=== PATIENT | female | born 1940 | race Caucasian/White ===

== ENCOUNTER → 2017-08-04 | Outpatient (CLI) | payer MEDICARE ==
[~2017-08-04] MED LIST: ALB18R INH; ALB6.7R INH; ALBU8.5H IH; ALL300 PO; ALLO-2 PO; ALPR-448 PO; AMLO-1 PO; AMLO-96 PO; AMOX-559 PO; AZIT-17 PO; BUDE10.2 INH; BUDE10.25 IH; CHOL10005 PO; CYAN250T15 PO; CYCL-277 PO; CYCL10TA29 PO; DABI150C3 PO; DABI75CA4 PO; DILT180T9 PO; DILT360C35 PO; DIPH-1 PO; DIPH0.5D12 IM; DOXY-179 PO; EPIN0.3P15 IM; ESCI10TA8 PO; ESCI20TA8 PO; FEXO180T74 PO; FEXO180T87 PO; FLU IM; FLU150 PO; FLU20 PO; FLU45SYR17 IM; FLUO-177 PO; FLUT16SP19 NS; FLUT16SP20 NS; HYDR-389 PO; HYOS-50 SL; LACT1CAP6 PO; LEVO100T95 PO; LEVO88TA42 PO; LOPE-95 PO; LORA-629 PO; LUTE20CA11 PO; NITR-105 PO; NOR5/325 PO; OMEP-137 PO; OMEP-153 PO; OMEP40CA48 PO; OXYB5TAB86 PO; PNEU0.5D3 IM; PRED20TA6 PO; PRI250 PO; PRIM50TA PO; PRIM50TA42 PO; RIVA20TA PO; SOTA120T25 PO; SPIR25TA78 PO; SPIR50TA31 PO; SULF-198 PO; TRAZ-133 PO; TRAZ-163 PO
== END ==
LOC: RESP 06:44
PROVIDERS: ATTEND Internal Medicine
DX: R09.02 Hypoxemia (principal); J45.909 Unspecified asthma, uncomplicated; J98.4 Other disorders of lung
CPT/HCPCS: 94060; 94726; 94729

== ENCOUNTER → 2017-09-22 | Outpatient (RCR) | payer MEDICARE | LOC: RESP 08-18 10:33 | PROVIDERS: ATTEND Internal Medicine | DX: R09.02 Hypoxemia (principal); J45.909 Unspecified asthma, uncomplicated | CPT/HCPCS: 94618; G0239 ==

== ENCOUNTER 2017-10-31 10:24 | Emergency (ER) | payer MEDICARE ==
[~2017-10-31 10:24] MED LIST changes: -FENT1PAT40 TD; -FLUO-201 PO; -MORP100S32 PO
--- NOTE | 2017-10-31 10:40 | ER Report ---
History and Physical Time Seen By MD: 10:39 HPI/ROS CHIEF COMPLAINT: Severe abdominal pain HISTORY OF PRESENT ILLNESS: Patient is a 77-year-old female who presents to the emergency department by ambulance for evaluation of severe generalized abdominal pain. Patient states symptoms began on Tuesday but it progressively worsened. She was recently seen by Dr. Elaine on October 21 for evaluation of a vulvar infection she been previously put on antibiotics 2 days earlier by her primary care provider she started on clindamycin apparently developed epigastric abdominal discomfort and some diarrhea so she was switched to oral doxycycline which she is currently taking. Since that time she's had worsening abdominal cramping large amount of diarrhea that is described as mucousy but without blood. She is now having bloating and distention. Patient has no prior history of any abdominal surgeries but did have back surgery in the past. She denies fevers or chills. But does report feeling cold. She reports nausea without vomiting. She denies chest pain or shortness of breath. REVIEW OF SYSTEMS: Constitutional: No fever, no chills. Eyes: No discharge. ENT: No sore throat. Cardiovascular: No chest pain, no palpitations. Respiratory: No cough, no shortness of breath. Gastrointestinal: Crampy abdominal pain, nausea and watery mucousy diarrhea Genitourinary: No hematuria. Musculoskeletal: No back pain. Skin: No rashes. Neurological: No headache. Allergies: Coded Allergies: iodine (Verified Allergy, Severe, hives, 10/31/17) "about 20 years ago had an ivp and developed hives" NIKOLE Inhibitors (Unverified Allergy, Unknown, 10/31/17) codeine (Verified Allergy, Unknown, 10/31/17) hydrochlorothiazide (Unverified Allergy, Unknown, 10/31/17) morphine (Verified Allergy, Unknown, 10/31/17) Home Meds Active Scripts Doxycycline Hyclate (DOXYCYCLINE HYCLATE) 100 Mg Tablet, 100 MG PO QDAY, #7 TAB Prov:CANDACE BARRETT MD 10/25/17 Sotalol Hcl (SOTALOL) 120 Mg Tablet, 1 TAB PO BID, #180 TAB 4 Refills Prov:CANDACE BARRETT MD 10/19/17 Fluoxetine Hcl (FLUOXETINE HCL) 20 Mg Tablet, 20 MG PO QDAY, #30 TAB 6 Refills Prov:CANDACE BARRETT MD 10/19/17 Levothyroxine Sodium (SYNTHROID) 100 Mcg Tablet, 1 TAB PO QDAY, #90 TAB 4 Refills Prov:CANDACE BARRETT MD 10/05/17 Fluticasone Prop 50 Mcg Ns (FLONASE 50 MCG NS) 16 Gm [place].susp, 2 SPRAYS NS QDAY, #1 BOT 11 Refills Prov:CANDACE BARRETT MD 10/05/17 Primidone (PRIMIDONE) 250 Mg Tab, 1 TAB PO QHS, #90 TAB 3 Refills Prov:CANDACE BARRETT MD 10/05/17 Acetaminophen/Hydrocodone (HYDROCODON-ACETAMINOPH 7.5-325) 1 Each Ea, 1 EACH PO QID Y for BACK PAIN for 30 Days, #100 TAB refill on or after Prov:CANDACE BARRETT MD 09/22/17 Allopurinol (ZYLOPRIM 300 MG TAB (OR EQUIV)) 300 Mg Tab, 0.5 TAB PO QDAY, #45 TAB 4 Refills Prov:CANDACE BARRETT MD 08/25/17 Rivaroxaban 20 Mg (XARELTO 20 MG) 20 Mg Tablet, 1 TAB PO DAILY, #90 TAB 3 Refills Prov:CANDACE BARRETT MD 08/25/17 Amlodipine Besylate (AMLODIPINE BESYLATE) 5 Mg Tablet, 1 TAB PO QDAY, #90 TAB 3 Refills TAKE ONE TABLET BY MOUTH EVERY DAY Prov:CANDACE BARRETT MD 06/29/17 Diphenoxylate Hcl/Atropine (LOMOTIL TABLET) 1 Each Tablet, 1 EACH PO QID Y for diarhea, #40 TAB 3 Refills Prov:CANDACE BARRETT MD 04/29/17 Trazodone Hcl (TRAZODONE HCL) 100 Mg Tablet, 0.5-1 TAB PO QHS Y for sleep, #90 TAB 1 Refill Prov:CANDACE BARRETT MD 03/25/17 Albuterol Sulfate (VENTOLIN HFA) 18 Gm Inh, 2 PUFF INH QID Y for SHORTNESS OF BREATH, #1 INH 4 Refills Prov:CANDACE BARRETT MD 12/27/16 Spironolactone (SPIRONOLACTONE) 25 Mg Tablet, 1 TAB PO QDAY, #90 TAB 4 Refills Prov:CANDACE BARRETT MD 08/19/16 Omeprazole (OMEPRAZOLE) 40 Mg Capsule.dr, 40 MG PO QDAY, #90 CAP 3 Refills Prov:CANDACE BARRETT MD 06/24/16 Loratadine (LORATADINE) 10 Mg Tablet, 1 TAB PO DAILY Y for allergies, #30 TAB Prov:CANDACE BARRETT MD 03/05/16 Epinephrine (EPIPEN 2-ANTOINETTE) 0.3 Mg/0.3 Ml Pen.injctr, 0.3 MG IM ONCE Y for bee sting, #1 VIAL 1 Refill Prov:WINNIE VIVEROS MD 01/24/15 Reported Medications Cyanocobalamin (Vitamin B-12) (VITAMIN B-12) Unknown Strength Tablet, PO 04/07/15 Lactobacillus Combination No.4 (PROBIOTIC) 1 Each Capsule, 1 CAP PO QDAY, CAPSULE 04/07/15 Lutein (LUTEIN) 20 Mg Capsule, 1 CAP PO QDAY, CAPSULE 04/07/15 Cholecalciferol (Vitamin D3) (VITAMIN D3) 1,000 Unit Tablet, 1000 UNIT PO DAILY 05/06/14 Discontinued Scripts Clindamycin Hcl (CLINDAMYCIN HCL) 300 Mg Capsule, 300 MG PO Q8H, #30 CAPSULE Prov:CANDACE BARRETT MD 10/19/17 Past Medical/Surgical History Past medical history significant for atrial fibrillation, hypertension, asthma, irritable bowel syndrome, peptic ulcer disease, chronic back pain history of depression, history of hypothyroidism, past surgical history for cataract extraction 2009, hysterectomy in 1986, history of bilateral total knee replacement 2007. Hx Smoking: No Smoking Status: Never Smoker Hx Substance Use Disorder: No Hx Alcohol Use: Yes Constitutional Vital Sign - Last 24 Hours 10/31/17 10/31/17 10/31/17 10/31/17 10:33 10:42 10:54 11:00 Temp 97.9 Pulse 62 62 Resp 22 36 B/P (MAP) 180/82 180/82 (114) 169/89 (115) Pulse Ox 97 95 O2 Delivery Room Air 10/31/17 10/31/17 10/31/17 10/31/17 11:05 11:30 11:35 11:40 Pulse 72 75 77 Resp 26 14 25 B/P (MAP) 209/98 (135) Pulse Ox 96 95 95 10/31/17 10/31/17 10/31/17 10/31/17 11:45 12:30 12:45 13:00 Pulse 81 86 Resp 16 37 B/P (MAP) 209/103 (138) 205/111 (142) Pulse Ox 94 96 10/31/17 10/31/17 10/31/17 10/31/17 13:05 13:35 14:00 14:05 Pulse ??? 82 81 Resp 10 15 29 B/P (MAP) 125/117 (120) Pulse Ox 93 93 Intake and Output 10/31/17 10/31/17 11/01/17 15:00 23:00 07:00 Intake Total 1200 ml Balance 1200 ml Physical Exam General/Constitutional: Patient is awake, alert, and ill appearing patient appears pale and shivering Head: Normocephalic and atraumatic. Eyes: Conjunctival clear, Pupils are equal and reactive to light. Extraocular muscles are intact and symmetrical. Sclera are clear and anicteric. Ears:External canals are clear. Tympanic membranes are clear with normal landmarks and light reflex. Oropharyngeal: Mucous membranes are dry Neck: Supple, no adenopathy. Cardiovascular: Heart is regular rate and rhythm without audible murmurs, rubs or gallops. Pulmonary: Lungs are clear to auscultation bilaterally. There are no wheezes, rales, or rhonchi. Chest rise is symmetrical Abdomen: Distended abdomen, diffusely tender minimal bowel sounds Extremities: No gross deformities, No peripheral cyanosis. Able to move all 4 extremities. Neuro: Alert and oriented X3, Skin: No rashes, skin is cool and pale in appearance Medical Decision Making Data Points Result Diagram: 10/31/17 1025 10/31/17 1025 Laboratory Hematology Test 10/31/17 10:25 10/31/17 11:40 10/31/17 13:35 Red Blood Count 4.38 M/uL (4.17-5.56) Mean Corpuscular Volume 96.5 fL (80.0-96.0) Mean Corpuscular Hemoglobin 33.5 pg (26.0-33.0) Mean Corpuscular Hemoglobin Concent 34.7 g/dL (32.0-36.0) Red Cell Distribution Width 13.0 % (11.5-14.5) Mean Platelet Volume 7.4 fL (7.2-11.1) Neutrophils (%) (Auto) 73.4 % (39.4-72.5) Lymphocytes (%) (Auto) 14.6 % (17.6-49.6) Monocytes (%) (Auto) 10.4 % (4.1-12.4) Eosinophils (%) (Auto) 0.6 % (0.4-6.7) Basophils (%) (Auto) 1.0 % (0.3-1.4) Nucleated RBC Relative Count (auto) 0.0 /100WBC Neutrophils # (Auto) 5.3 K/uL (2.0-7.4) Lymphocytes # (Auto) 1.1 K/uL (1.3-3.6) Monocytes # (Auto) 0.8 K/uL (0.3-1.0) Eosinophils # (Auto) 0.0 K/uL (0.0-0.5) Basophils # (Auto) 0.1 K/uL (0.0-0.1) Nucleated RBC Absolute Count (auto) 0.00 K/uL Peripheral Blood Smear Yes Y/N Sodium Level 127 mmol/L (137-145) Potassium Level 4.3 mmol/L (3.5-5.0) Chloride Level 91 mmol/L (98-107) Carbon Dioxide Level 26 mmol/L (22-31) Blood Urea Nitrogen 11 mg/dl (7-18) Creatinine 0.60 mg/dl (0.52-1.04) Glomerular Filtration Rate Calc > 60.0 Random Glucose 145 mg/dl (75-110) Calcium Level 9.9 mg/dl (8.4-10.2) Total Bilirubin 0.5 mg/dl (0.2-1.3) Aspartate Amino Transf (AST/SGOT) 21 U/L (0-35) Alanine Aminotransferase (ALT/SGPT) 24 U/L (0-56) Alkaline Phosphatase 135 U/L (0-126) Total Protein 7.5 gm/dl (6.3-8.2) Albumin 3.7 g/dl (3.5-5.0) Lipase 53 U/L (23-300) Helicobacter pylori IgG Antibody Negative (NEGATIVE) Lactate 2.9 mmol/L (0.7-2.1) Urine Color Yellow Urine Clarity Clear Urine pH 5.0 pH (4.8-9.5) Urine Specific [place] 1.056 Urine Protein Negative mg/dL (NEGATIVE) Urine Glucose (UA) Negative mg/dL (NEGATIVE) Urine Ketones Negative mg/dL (NEGATIVE) Urine Blood Small (NEGATIVE) Urine Nitrite Negative (NEGATIVE) Urine Bilirubin Negative (NEGATIVE) Urine Urobilinogen Negative mg/dL (0.2-1.9) Urine Leukocyte Esterase Moderate (NEGATIVE) Urine RBC 1 /HPF (0-2/HPF) Urine WBC 1 /HPF (0-5/HPF) Urine Squamous Epithelial Cells Many /LPF (</=FEW) Urine Transitional Epithelial Cells Few /LPF (NONE-FEW) Urine Bacteria Negative /HPF (NONE-FEW) Urine Mucus None /HPF (NONE-FEW) Chemistry Test 10/31/17 10:25 10/31/17 11:40 10/31/17 13:35 White Blood Count 7.2 k/uL (4.5-11.0) Red Blood Count 4.38 M/uL (4.17-5.56) Hemoglobin 14.7 g/dL (12.0-16.0) Hematocrit 42.3 % (34.0-47.0) Mean Corpuscular Volume 96.5 fL (80.0-96.0) Mean Corpuscular Hemoglobin 33.5 pg (26.0-33.0) Mean Corpuscular Hemoglobin Concent 34.7 g/dL (32.0-36.0) Red Cell Distribution Width 13.0 % (11.5-14.5) Platelet Count 613 K/uL (150-450) Mean Platelet Volume 7.4 fL (7.2-11.1) Neutrophils (%) (Auto) 73.4 % (39.4-72.5) Lymphocytes (%) (Auto) 14.6 % (17.6-49.6) Monocytes (%) (Auto) 10.4 % (4.1-12.4) Eosinophils (%) (Auto) 0.6 % (0.4-6.7) Basophils (%) (Auto) 1.0 % (0.3-1.4) Nucleated RBC Relative Count (auto) 0.0 /100WBC Neutrophils # (Auto) 5.3 K/uL (2.0-7.4) Lymphocytes # (Auto) 1.1 K/uL (1.3-3.6) Monocytes # (Auto) 0.8 K/uL (0.3-1.0) Eosinophils # (Auto) 0.0 K/uL (0.0-0.5) Basophils # (Auto) 0.1 K/uL (0.0-0.1) Nucleated RBC Absolute Count (auto) 0.00 K/uL Peripheral Blood Smear Yes Y/N Glomerular Filtration Rate Calc > 60.0 Calcium Level 9.9 mg/dl (8.4-10.2) Total Bilirubin 0.5 mg/dl (0.2-1.3) Aspartate Amino Transf (AST/SGOT) 21 U/L (0-35) Alanine Aminotransferase (ALT/SGPT) 24 U/L (0-56) Alkaline Phosphatase 135 U/L (0-126) Total Protein 7.5 gm/dl (6.3-8.2) Albumin 3.7 g/dl (3.5-5.0) Lipase 53 U/L (23-300) Helicobacter pylori IgG Antibody Negative (NEGATIVE) Lactate 2.9 mmol/L (0.7-2.1) Urine Color Yellow Urine Clarity Clear Urine pH 5.0 pH (4.8-9.5) Urine Specific [place] 1.056 Urine Protein Negative mg/dL (NEGATIVE) Urine Glucose (UA) Negative mg/dL (NEGATIVE) Urine Ketones Negative mg/dL (NEGATIVE) Urine Blood Small (NEGATIVE) Urine Nitrite Negative (NEGATIVE) Urine Bilirubin Negative (NEGATIVE) Urine Urobilinogen Negative mg/dL (0.2-1.9) Urine Leukocyte Esterase Moderate (NEGATIVE) Urine RBC 1 /HPF (0-2/HPF) Urine WBC 1 /HPF (0-5/HPF) Urine Squamous Epithelial Cells Many /LPF (</=FEW) Urine Transitional Epithelial Cells Few /LPF (NONE-FEW) Urine Bacteria Negative /HPF (NONE-FEW) Urine Mucus None /HPF (NONE-FEW) Urinalysis Test 10/31/17 13:35 Urine Color Yellow Urine Clarity Clear Urine pH 5.0 pH (4.8-9.5) Urine Specific [place] 1.056 Urine Protein Negative mg/dL (NEGATIVE) Urine Glucose (UA) Negative mg/dL (NEGATIVE) Urine Ketones Negative mg/dL (NEGATIVE) Urine Blood Small (NEGATIVE) Urine Nitrite Negative (NEGATIVE) Urine Bilirubin Negative (NEGATIVE) Urine Urobilinogen Negative mg/dL (0.2-1.9) Urine Leukocyte Esterase Moderate (NEGATIVE) Urine RBC 1 /HPF (0-2/HPF) Urine WBC 1 /HPF (0-5/HPF) Urine Squamous Epithelial Cells Many /LPF (</=FEW) Urine Transitional Epithelial Cells Few /LPF (NONE-FEW) Urine Bacteria Negative /HPF (NONE-FEW) Urine Mucus None /HPF (NONE-FEW) EKG/Imaging EKG Interpretation EKG shows right bundle branch block. Ventricular rate is 63 bpm.. Monitor Interpretation: Normal Sinus Rhythm ED Course/Re-evaluation Clinical Indication for ER IV: Hydration, IV Access ED Course 10/31/2017 10:44:32 pm patient has a history of IV contrast allergy for CT scan. I feel that the benefit of the CT scan outweighs any risk of allergy. Patient had no respiratory symptoms with the allergy but just diffuse hives. Plan at this time will be to give prophylactic dose of Benadryl and Solu-Medrol. CT scan of the abdomen pelvis is concerning for a colonic perforation with widespread carcinomatosis and metastatic disease throughout the chest abdomen and pelvis. I did discuss case with our on-call surgeon ; feels that the patient would be better served where there are services for surgical oncology. I spoke with from [facility] history physical exam all pertinent lab data and imaging studies reviewed. He is accepted patient for transfer to his facility and patient to be transported to the ER for reevaluation. I discussed the findings of the CT scan with the patient and her . They are aware and agree to the transport at this time. Decision to Disposition Date: Oct 31, 2017 Decision to Disposition Time: 13:25 Depart Departure Latest Vital Signs Vital Signs Date Time Temp Pulse Resp B/P (MAP) Pulse Ox O2 Delivery O2 Flow Rate FiO2 10/31/17 14:05 81 29 10/31/17 14:00 125/117 (120) 10/31/17 13:35 93 10/31/17 10:33 97.9 Room Air Impression: Primary Impression: Colon perforation Additional Impression: Metastatic disease Condition: Condition Unchanged Disposition: XFER TO [facility] (to Dr Aldana) Referrals: CANDACE BARRETT MD (PCP) Problem Qualifiers BERNICE TOVAR MD Oct 31, 2017 10:40
[2017-10-31] MEDS ORDERED: EMS NS 0.9%(*) 1000 ML BAG 1,000 ML IV ONE (10:50)
[2017-10-31] MEDS ORDERED: NS(*) 0.9% 1000 ML BAG 1,000 ML IV ONE (10:53)
[2017-10-31] MEDS ORDERED: ONDANSETRON 4 MG/2 ML VIAL IVP ONE (10:55)
[2017-10-31] MEDS ORDERED: HYDROmorphone(ER ONLY) 1 MG/ML IVP ONE ×2 (10:55→14:05)
--- NOTE | 2017-10-31 11:03 | EKG ---
FACILITY: [facility] PATIENT NAME: KARIME HANSON : [id number] MR: [id number] V: [id number] EXAM DATE: ORDERING PHYSICIAN: BERNICE TOVAR TECHNOLOGIST: HECTOR Patel Reason : ABD. PAIN Blood Pressure : / mmHG Vent. Rate : 063 BPM Atrial Rate : 063 BPM P-R Int : 156 ms QRS Dur : 120 ms QT Int : 476 ms P-R-T Axes : 078 -49 -04 degrees QTc Int : 487 ms Normal sinus rhythm Right bundle branch block Left anterior fascicular block Bifascicular block Left ventricular hypertrophy with QRS widening Abnormal ECG When compared with ECG of 30-MAY-2017 10:54, No significant change was found Confirmed by RON LOGAN ([id number]) on 10/31/2017 11:46:19 AM Referred By: GUY Confirmed By:RON LOGAN
[2017-10-31] MEDS ORDERED: IOPAMIDOL 76% 75 ML INFUS BTL 75 ML ONE (11:04)
[2017-10-31] MEDS ORDERED: diphenhydrAMINE 50 MG/ML VIAL IVP ONE (11:10)
[2017-10-31] MEDS ORDERED: methylPREDNIS SUCC 125 MG/2ML IVP ONE (11:10)
[2017-10-31 11:11] LABS: PLATELET COUNT, AUTOMATED 613 K/uL (150-450)
[2017-10-31] MEDS ORDERED: LORazepam 2 MG/ML VIAL IVP ONE (11:20)
--- NOTE | 2017-10-31 11:46 | RADIOLOGY IMAGING REPORT ---
[place] [facility] [place]IENT NAME: Linda Beckham : 1940 MR: [id number] V: [id number] EXAM DATE: ORDERING PHYSICIAN: BERNICE TOVAR TECHNOLOGIST: Location: [facility] Patient: Linda Beckham : 1940 Visit/Account:[id number] Date of Sevice: 10/31/2017 KUB SINGLE VIEW ABDOMEN HISTORY: pain COMPARISON: Son abdomen May 2015 FINDINGS: Multiple supine view is submitted. There are mildly dilated loops of small bowel throughout the left hemiabdomen concerning for an early/partial obstruction. No pneumatosis. No definite free air. IMPRESSION: Mildly dilated loops of small bowel within the left hemiabdomen concerning for early or partial small bowel obstruction Report Dictated By: Mejia Freeman MD at 10/31/2017 11:40 AM Report E-Signed By: Mejia Freeman MD at 10/31/2017 11:42 AM WSN:[email or web address]
[2017-10-31] MEDS ORDERED: ceFAZolin(*) 2GM/D5W 50ML 50 ML IVPB ONE (12:40)
[2017-10-31] MEDS ORDERED: metroNIDAZOLE* 500MG/100ML BAG 100 ML IVPB ONE (12:40)
--- NOTE | 2017-10-31 12:44 | RADIOLOGY IMAGING REPORT ---
FACILITY: [facility] [place] PATIENT NAME: Linda Beckham : 1940 MR: [id number] V: [id number] EXAM DATE: ORDERING PHYSICIAN: BERNICE TOVAR TECHNOLOGIST: Location: [facility] Patient: Linda Beckham : 1940 Visit/Account:[id number] Date of Sevice: 10/31/2017 CT abdomen and pelvis with IV contrast Indication: Pain Comparison: Ultrasound of the abdomen from May 2015. Technique: Axial CT images were obtained through the abdomen and pelvis during injection of nonioni c iodinated intravenous contrast. Reformatted coronal and sagittal images were also obtained. One of the following dose optimization techniques was utilized in the performance of this exam: Automated ex posure control; adjustment of the mA and/or kV according to the patient's size; or use of an iterativ e reconstruction technique. Specific details can be referenced in the facility's radiology CT exam operational policy. Contrast: 75 ml of Isovue-370 IV contrast. Findings: Lower lung waggoner: There are innumerable circular nodules throughout the lung bases indicative of pul monary metastatic disease. No effusion or visualized pneumothorax. Free air is noted within the peritoneal cavity. Mild ascites is noted along the perihepatic and per isplenic regions. There are mesenteric implants throughout. Liver: No focal parenchymal abnormality of the liver. Biliary: Gallbladder appears unremarkable as well as the intra and extra hepatic biliary system. Pancreas: Atrophy without acute finding Spleen: Normal appearance. Adrenal glands: There is nodular fullness right adrenal gland which measures 1.3 cm. Differential in cludes metastatic disease, hyperplasia or underlying adenoma. Kidneys / retroperitoneum: Bilateral renal cortical cysts without evidence of hydronephrosis or mass Bowel / peritoneum / mesenteries: There is a low-density soft tissue mass which is directly associate d with the cecum. This region measures approximately 5.9 x 4.5 cm in transverse and AP dimension. I t is difficult to tell whether this is a mesenteric implant or a primary associated with the cecum. There is a large region of low-density lobulated soft tissue mass which is directly associated with t he sigmoid colon measuring approximately 7.8 x 4.9 cm highly suspicious for primary neoplasm. Additi onally, this could be infiltrative mass from a left ovarian primary. There is free air adjacent to t he sigmoid colon along its right lateral border. Lymph node assessment: No pathologic adenopathy identified. Pelvic structures: Uterus is been removed. Considering the soft tissue masses in the pelvis, its difficult to assess whether the ovaries are in place. Vessels: Mild atherosclerotic calcifications seen throughout a nonaneurysmal abdominal aorta and bran ches. Musculoskeletal / Body wall: Severe spondylotic changes are noted throughout the visualized thoracic or lumbar spine. There is no CT evidence of acute bony fracture or definite destructive osseous proc ess. IMPRESSION: 1. Diffuse metastatic disease throughout the lower chest, abdomen and pelvis. There is extensive pe ritoneal carcinomatosis with large low-density soft tissue masses associated with the left adnexa and cecum. The mass within the left adnexa is unclear whether it primarily arose from left ovarian tiss ue versus a primary sigmoid neoplasm. The mass measures 7.8 x 4.9 cm and has infiltration through th e sigmoid with subsequent perforation and intraperitoneal free air. It is likely that the 5.9 x 4.5 cm low-density mass associated with the sigmoid is a large mesenteric implant rather than primary col onic neoplasm. Results were called to Dr. BERNICE TOVAR at 10/31/2017 12:39 PM. Report Dictated By: Mejia Freeman MD at 10/31/2017 12:23 PM Report E-Signed By: Mejia Freeman MD at 10/31/2017 12:39 PM WSN:[email or web address]
--- NOTE | 2017-10-31 12:49 | RADIOLOGY IMAGING REPORT ---
FACILITY: [facility] [place] PATIENT NAME: Linda Beckham : 1940 MR: [id number] V: [id number] EXAM DATE: ORDERING PHYSICIAN: BERNICE TOVAR TECHNOLOGIST: [place] [facility] [place] : 1940 Visit/Account:[id number] Date of Sevice: 10/31/2017 Single view of the chest Indication: Evidence of breath. Comparison: For examination chest December 25, 2012 Findings: Heart size within normal limits. There are diffuse circular nodules overlying the lungs consistent with diffuse pulmonary metastatic d isease. No effusion or pneumothorax. No destructive osseous process IMPRESSION: 1. Diffuse pulmonary metastatic disease Report Dictated By: Mejia Freeman MD at 10/31/2017 12:44 PM Report E-Signed By: Mejia Freeman MD at 10/31/2017 12:45 PM WSN:[id number]
[2017-10-31 14:00] VITALS: BP 125/117
== END 2017-10-31 14:45 | disposition short-term general hospital (02) ==
LOC: ER 10:34
DX: K63.1 Perforation of intestine (nontraumatic) (principal); C80.0 Disseminated malignant neoplasm, unspecified; C79.89 Secondary malignant neoplasm of other specified sites
CPT/HCPCS: 36415; 71045; 74018; 74177; 81001; 83605; 83690; 85025; 86677; 86850; 86900; 86901; 93005; 96361; 96365; 96368; 96375; 96376; 99285; J1170; J1200; J2060; J2405; J2930; J3490; J7030; Q9967; 82040; 82247; 82310; 82374; 82435; 82565; 82947; 84075; 84132; 84155; 84295; 84450; 84460; 84520; J0690

== ENCOUNTER → 2017-10-31 | Outpatient (CLI) | payer MEDICARE ==
[~2017-10-31] MED LIST changes: +CLIN300C99 PO; +FENT1PAT40 TD; +FLUO-201 PO; +FLUO20TA2 PO; +MORP100S32 PO; +OXYC5TAB38 PO
== END ==
LOC: AMB 14:25
PROVIDERS: ATTEND Nurse Practitioner
DX: C18.9 Malignant neoplasm of colon, unspecified (principal)
CPT/HCPCS: A0425; A0426

== ENCOUNTER → 2017-10-31 | Outpatient (CLI) | payer MEDICARE ==
[~2017-10-31] MED LIST changes: -OXYC5TAB38 PO
== END ==
LOC: AMB 10:06
PROVIDERS: ATTEND Nurse Practitioner
DX: R10.9 Unspecified abdominal pain (principal); R14.0 Abdominal distension (gaseous); I48.91 Unspecified atrial fibrillation
CPT/HCPCS: A0425; A0433

== ENCOUNTER → 2017-11-15 | Outpatient (CLI) | payer MEDICARE ==
[~2017-11-15] MED LIST changes: +FENT1PAT40 TD; +FLUO-201 PO; +MORP100S32 PO; +OXYC5TAB38 PO
== END ==
LOC: AMB 13:58
PROVIDERS: ATTEND Nurse Practitioner
DX: C34.90 Malignant neoplasm of unspecified part of unspecified bronchus or lung (principal); C78.5 Secondary malignant neoplasm of large intestine and rectum
CPT/HCPCS: A0425; A0428